=== PATIENT | male | born 1955 | race Caucasian/White ===

== ENCOUNTER 2018-01-07 13:14 | Emergency (ER) | payer SELFPAY ==
[~2018-01-07] VITALS: Ht 162.6 cm; Wt 75.0 kg
[2018-01-07 16:18] LABS: CHLORIDE 111 mEq/L (98-107)
[2018-01-07 16:19] LABS: BASOPHILS % 2.7 % (0.0-2.0); EOSINOPHILS % 0.5 % (0.0-5.0); HEMATOCRIT. 33.3 % (42.0-52.0); HEMOGLOBIN. 10.9 g/dL (14.0-18.0); LYMPHOCYTES % 38.9 % (20.0-50.0); MEAN CORPUSCULAR HEMOGLOBIN 28.7 pg (28.0-32.0); MEAN PLATELET VOLUME 7.4 fl (7.4-10.4); NEUTROPHILS % 48.9 % (40.0-76.0); PLATELET 294 x1000/uL (130-400); RED BLOOD CELL COUNT 3.78 mill/uL (4.7-6.1)
[2018-01-07 16:32] LABS: ETHANOL BLOOD 443 mg/dL
[2018-01-07] MEDS ORDERED: SODIUM CHLORIDE 0.9% 1,000 ML IV ONE (17:19)
[2018-01-07 20:00] VITALS: BP 145/90
== END 2018-01-07 20:00 | disposition home or self-care (01) ==
LOC: ER 13:19
DX: F10.229 Alcohol dependence with intoxication, unspecified (principal); Y90.8 Blood alcohol level of 240 mg/100 ml or more
CPT/HCPCS: 36415; 70450; 71045; 80053; 82962; 85025; 99285; G0482; J7030